=== PATIENT | male | born 2000 | race Caucasian/White ===

== ENCOUNTER 2023-09-20 18:31 | Emergency (ER) | payer SELFPAY ==
[2023-09-20 19:30] VITALS: BP 143/93; PULSE 95; RESP 16; TEMP 36.8; O2SAT 99
--- NOTE | 2023-09-21 | PC.NURSE ---
Pt LWBS due to wait. Pt educated on risks/benefits of leaving. Pt to come back to be seen if sx continue or worsen.
== END 2023-09-21 00:29 | disposition left against medical advice (07) ==
LOC: ANHED 09-21 00:11
DX: G43.909 Migraine, unspecified, not intractable, without status migrainosus (principal)
CPT/HCPCS: 99199